=== PATIENT | female | born 1980 | race American Indian/Alaskan Native ===

== ENCOUNTER 2017-01-09 21:59 | Emergency (ER) | payer BC ==
[2017-01-09 22:17] VITALS: O2SAT 100
[2017-01-10 00:18] LABS: RBC URINE 5 /hpf (0-3); URINE BILIRUBIN NEGATIVE (NEGATIVE); URINE BLOOD 3+ (NEGATIVE); URINE COLOR Yellow (YELLOW); URINE GLUCOSE (UA) NORMAL (Normal); URINE KETONE NEGATIVE (NEGATIVE); URINE LEUKOCYTE ESTERASE NEG Leu/uL (Negative); URINE PROTEIN NEGATIVE (NEGATIVE); URINE UROBILINOGEN NORMAL mg/dL (0.2-1.0); WBC URINE 2 /hpf (0-5)
[2017-01-10] MEDS ORDERED: Sodium Chloride 0.9% 1,000 ML IV ONE (01:04)
[2017-01-10 01:33] LABS: BASO # 0.1 K/uL (0.0-0.2); BASO % 0.9 % (0.0-2.0); EOS # 0.2 K/uL (0.0-0.7); EOS % 2.8 % (0.0-4.0); HEMATOCRIT 37.2 % (34.0-47.0); LYMPH # 3.2 K/uL (1.0-4.3); LYMPH % 47.3 % (20.0-40.0); MEAN CELL VOLUME 80.5 fL (81.0-99.0); MEAN CORPUSCULAR HGB CONC 32.4 g/dL (33.0-37.0); MEAN PLATELET VOLUME 8.8 fL (7.2-11.7); MONO # 0.3 K/uL (0.0-0.8); NRBC % 0.1 % (0.0-2.0); RED CELL DISTRIBUTION WIDTH 14.2 % (11.5-14.5); WHITE BLOOD COUNT 6.9 K/uL (4.8-10.8)
[2017-01-10] MEDS ORDERED: Sodium Chloride 0.9% 1,000 ML ONE (01:40)
[2017-01-10 02:00] LABS: CHLORIDE 101 mmol/L (98-107)
[2017-01-10 02:01] LABS: POTASSIUM 3.8 mmol/L (3.6-5.2); SODIUM 136 mmol/L (132-148)
[2017-01-10 02:03] LABS: ALKALINE PHOSPHATASE 60 U/L (38-126); ALT/SGPT 34 U/L (9-52); AST/SGOT 21 U/L (14-36); BILIRUBIN,TOTAL 0.5 mg/dL (0.2-1.3); BLOOD UREA NITROGEN 11 mg/dL (7-17); CARBON DIOXIDE 25 mmol/L (22-30); GFR AFRICAN-AMERICAN > 60; GLUCOSE,RANDOM 90 mg/dL (65-105); TOTAL PROTEIN 6.9 g/dL (6.3-8.3)
[2017-01-10] MEDS ORDERED: Iodixanol 320 mg/ml 150 ml Bottle IV ONE (02:58)
[2017-01-10 03:26] VITALS: BP 131/83; PULSE 79; RESP 16; TEMP 97.7
--- NOTE | 2017-01-10 03:47 | C.PDOC ---
History Of Present Illness 36 y/o female presents to ED with complaint of abdominal pain that started yesterday. Patient notes that evaluated by OB-OPTICAL ADVISOR a few weeks ago and was told that she has a fibroid "on her bladder". Patient notes she got her menstrual period yesterday and now reports increased pain. Notes taking Excedrin without relief. Denies vaginal discharge or concern for STD, noting she had recent negative STD test. Otherwise, denies fever, chills, nausea, vomiting, diarrhea, urinary symptoms. Time Seen by Provider: 01/10/17 01:00 Chief Complaint (Nursing): Abdominal Pain History Per: Patient History/Exam Limitations: no limitations Onset/Duration Of Symptoms: Days Current Symptoms Are (Timing): Still Present Location Of Pain/Discomfort: RLQ, LLQ, Suprapubic Radiation Of Pain To:: None Quality Of Discomfort: "Pain" Associated Symptoms: denies: Fever, Chills, Nausea, Vomiting, Diarrhea, Back Pain, Urinary Symptoms Recent travel outside of the [place]: No Abnormal Vaginal Bleeding: No Last Menstral Period: yesterday Past Medical History Reviewed: Historical Data, Nursing Documentation, Vital Signs Vital Signs: Last Vital Signs Temp 97.7 F 01/10/17 03:25 Pulse 79 01/10/17 03:25 Resp 16 01/10/17 03:25 BP 131/83 01/10/17 03:25 Pulse Ox 100 01/10/17 06:03 - Medical History PMH: No Chronic Diseases Family History: States: Unknown Family Hx - Social History Hx Tobacco Use: No Hx Alcohol Use: Yes Hx Substance Use: No - Immunization History Hx Tetanus Toxoid Vaccination: No Hx Influenza Vaccination: Yes Hx Pneumococcal Vaccination: No Review Of Systems Except As Marked, All Systems Reviewed And Found Negative. Constitutional: Negative for: Fever, Chills Cardiovascular: Negative for: Chest Pain Respiratory: Negative for: Cough Gastrointestinal: Positive for: Abdominal Pain. Negative for: Nausea, Vomiting , Diarrhea Genitourinary: Negative for: Dysuria, Hematuria, Vaginal Discharge Skin: Negative for: Rash Neurological: Negative for: Headache, Dizziness Physical Exam - Physical Exam Appears: Non-toxic, No Acute Distress, Other (sleeping on initial examination) Skin: Normal Color, Warm, Dry Head: Atraumatic, Normacephalic Eye(s): bilateral: Normal Inspection, EOMI Nose: Normal Oral Mucosa: Moist Chest: Symmetrical Cardiovascular: Rhythm Regular Respiratory: No Rales, No Rhonchi, No Wheezing Gastrointestinal/Abdominal: Soft, Tenderness (suprapubic, bilateral lower quadrants), No Distention, No Guarding, No Rebound Back: Normal Inspection Extremity: Normal ROM, Capillary Refill (< 2 sec. ) Neurological/Psych: Oriented x3, Normal Speech, Normal Cognition ED Course And Treatment - Laboratory Results Result Diagrams: 01/10/17 01:30 01/10/17 01:30 O2 Sat by Pulse Oximetry: 100 (RA) Pulse Ox Interpretation: Normal - CT Scan/US CT Abdomen/Pelvis Other Rad Studies (CT/US): Read By Radiologist, Radiology Report Reviewed CT/US Interpretation: EXAM: CT Abdomen and Pelvis With Intravenous Contrast. CLINICAL HISTORY: 36 years old, female; Pain; Abdominal pain; Periumbilical. TECHNIQUE: Axial computed tomography images of the abdomen and pelvis with intravenous contrast. This CT. exam was performed using one or more of the following dose reduction techniques: automated. exposure control, adjustment of the mA and/or kV according to patient size, and/or use of iterative. reconstruction technique. Coronal and sagittal reformatted images were created and reviewed. CONTRAST: 100 mL of [id number] administered intravenously. COMPARISON: No relevant prior studies available. FINDINGS: Lower thorax: RIGHT lower lobe calcified granuloma. ABDOMEN: Liver: Unremarkable. No mass. Gallbladder and bile ducts: No calcified stones. No ductal dilation. Pancreas: No ductal dilation. No mass. Spleen: No splenomegaly. Adrenals: No mass. Kidneys and ureters: No mass. No hydronephrosis. Stomach and bowel: No definite mural thickening. No obstruction. Appendix: Normal caliber. No inflammation. PELVIS: Bladder: Unremarkable. Reproductive: Lobulated uterus with several masses. ABDOMEN and PELVIS: Intraperitoneal space: No significant fluid collection. No free air. Bones/joints: No acute fracture. Soft tissues: Unremarkable. Vasculature: Unremarkable. No aneurysm. Lymph nodes: Few subcentimeter short axis mesenteric, retroperitoneal, iliac lymph nodes,. nonspecific. IMPRESSION: 1. Probable fibroid uterus. 2. Incidental/ non-acute findings are described above. Progress Note: Treated with Toradol and IVFs. CT abdomen/pelvis and labs ordered. On reassessment, patient is resting comfortably, and is in no acute distress. Tolerating PO. Patient instructed to follow up with PMD within 2-5 days. Disposition - Disposition Disposition: HOME/ ROUTINE Disposition Time: 03:46 Condition: STABLE Additional Instructions: Follow up with your primary medical doctor or clinic in 2-5 days for further evaluation. Take medications as prescribed. Return to the emergency department at any time if symptoms persist or worsen. 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 - Scribe Statement The provider has reviewed the documentation as recorded by the Manuelitoibrabia doe All medical record entries made by the [place] were at my direction and personally dictated by me. I have reviewed the chart and agree that the record accurately reflects my personal performance of the history, physical exam, medical decision making, and the department course for this patient. I have also personally directed, reviewed, and agree with the discharge instructions and disposition.
--- NOTE | 2017-01-10 10:13 | CT ---
PROCEDURE: CT Abdomen and Pelvis with intravenous contrast HISTORY: Abdominal pain COMPARISON: None. TECHNIQUE: Multiple contiguous axial images were performed through the abdomen and pelvis with intravenous contrast. Subsequently, sagittal and coronal reformatted images were obtained. Radiation dose: Total exam DLP = 732 mGy-cm. This CT exam was performed using one or more of the following dose reduction techniques: Automated exposure control, adjustment of the mA and/or kV according to patient size, and/or use of iterative reconstruction technique. FINDINGS: LOWER THORAX: Few punctate subpleural nodules in the right lung including the middle and lower lobes. Punctate right lower lobe calcified granuloma. Punctate nodule at the level of the lingula. LIVER: Unremarkable. No gross lesion or ductal dilatation. GALLBLADDER AND BILE DUCTS: Unremarkable. PANCREAS: Unremarkable. No gross lesion or ductal dilatation. SPLEEN: Unremarkable. ADRENALS: Unremarkable. No mass. KIDNEYS AND URETERS: Unremarkable. No hydronephrosis. No solid mass. VASCULATURE: Unremarkable. No aortic aneurysm. BOWEL: Unremarkable. No obstruction. No gross mural thickening. APPENDIX: Unremarkable. Normal appendix. PERITONEUM: Unremarkable. No free fluid. No free air. LYMPH NODES: Few subcentimeter short axis mesenteric, retroperitoneal, and iliac lymph nodes, nonspecific. BLADDER: Unremarkable. REPRODUCTIVE: Lobulated uterus with several masses. BONES: Small posterior disc osteophyte complexes at the L5-S1 level. OTHER FINDINGS: None. IMPRESSION: Probable fibroid uterus. Additional findings as above. These findings were preliminarily reported at 3:43 a.m. on 01/10/[address] Zana Bailey from [email or web address].
== END 2017-01-10 03:56 | disposition home or self-care (01) ==
LOC: C.ER 21:59
DX: D25.9 Leiomyoma of uterus, unspecified (principal)
CPT/HCPCS: 74177; 80053; 81001; 83690; 84703; 85025; 96361; 96374; 99284; J1885; J7040; Q9965

== ENCOUNTER 2017-06-16 12:31 | Emergency (ER) | payer BC ==
[2017-06-16 13:10] LABS: RBC URINE 2 /hpf (0-3); URINE BILIRUBIN NEGATIVE (NEGATIVE); URINE BLOOD NEGATIVE (NEGATIVE); URINE COLOR Yellow (YELLOW); URINE GLUCOSE (UA) NORMAL (Normal); URINE KETONE NEGATIVE (NEGATIVE); URINE LEUKOCYTE ESTERASE NEG Leu/uL (Negative); URINE PROTEIN NEGATIVE (NEGATIVE); URINE UROBILINOGEN NORMAL mg/dL (0.2-1.0); WBC URINE < 1 /hpf (0-5)
--- NOTE | 2017-06-16 13:31 | C.PDOC ---
History Of Present Illness 36 YO female w/PMHx of uterine fibroids come in for evaluation of suprapubic cramping pain developed for past few days. Pt admits, similar sx in past and c/ w " my fibroid pain". Otherwise, pt denies fever, chills, headache, dizziness, neck pain, CP, SOB, dyspnea, diaphoresis, abd. pain, N/V/D, UTI sx, hematuria, vaginal irritation or discharges. LNMP 05/06/17. Ambulate to ED for evaluation, not in any apparent distress. FYI: pt was seen here on 12/2016 due to same complaints when CT abd/plevis performed with no acute findings. Time Seen by Provider: 06/16/17 12:53 Chief Complaint (Nursing): Abdominal Pain History Per: Patient Onset/Duration Of Symptoms: Intermittent Episodes Past Medical History Reviewed: Historical Data, Nursing Documentation, Vital Signs Vital Signs: Last Vital Signs Temp 98.6 F 06/16/17 12:35 Pulse 100 H 06/16/17 12:35 Resp 20 06/16/17 12:35 BP 157/107 H 06/16/17 12:35 Pulse Ox 100 06/16/17 14:58 - Medical History PMH: Denies: Chronic Kidney Disease Surgical History: No Surg Hx Family History: States: No Known Family Hx - Social History Hx Tobacco Use: No Hx Alcohol Use: Yes Hx Substance Use: No - Immunization History Hx Tetanus Toxoid Vaccination: No Hx Influenza Vaccination: Yes Hx Pneumococcal Vaccination: No Review Of Systems Except As Marked, All Systems Reviewed And Found Negative. Constitutional: Negative for: Fever, Chills ENT: Negative for: Throat Pain Cardiovascular: Negative for: Chest Pain, Palpitations Respiratory: Negative for: Cough, Shortness of Breath, Wheezing Gastrointestinal: Negative for: Nausea, Vomiting, Abdominal Pain, Diarrhea, Melena, Hematochezia, Hematemesis Musculoskeletal: Negative for: Neck Pain, Back Pain Skin: Negative for: Rash Neurological: Negative for: Weakness, Numbness, Altered Mental Status, Dizziness Physical Exam - Physical Exam Appears: Well, Non-toxic, No Acute Distress Skin: Normal Color, Warm, Dry, No Rash Eye(s): bilateral: PERRL Nose: No Discharge Oral Mucosa: Moist, No Drooling Tongue: Normal Appearing Lips: Normal Appearing Throat: No Erythema Neck: Trachea Midline, Supple Cardiovascular: Rhythm Regular, No JVD Respiratory: No Decreased Breath Sounds, No Accessory Muscle Use, No Stridor, No Wheezing Gastrointestinal/Abdominal: Soft, Tenderness (mild suprapubic), No Distention, No Guarding, No Rebound Back: No CVA Tenderness Extremity: Normal ROM Neurological/Psych: Oriented x3, Normal Speech ED Course And Treatment - Laboratory Results Urine POC: Negative O2 Sat by Pulse Oximetry: 100 Pulse Ox Interpretation: Normal - CT Scan/US Transvaginal US Other Rad Studies (CT/US): Radiology Report Reviewed CT/US Interpretation: Accession No. : [id number]. Patient Name / ID : [id number] [id number] / [id number]. Exam Date : 06/16/2017 14:11:57 ( Approved ). Study Comment : Sex / Age : F / 36Y. Creator : Steve Andino MD. Dictator : Steve Andino MD. Coding Educator : Disability Insurance Hearing Officer : Steve Andino MD. Approver2 : Report Date : 06/16/2017 14:39:10. My Comment : . HISTORY: PELVIC PAIN. COMPARISON: Comparison is made to the previous CT dated 01/10/2017. TECHNIQUE: Transabdominal and endovaginal ultrasound examination of the pelvis. FINDINGS: UTERUS: Measures 11.4 x 5.8 x 6.55 cm. Normal in size and appearance. There are 3 fibroids seen in the uterus. The largest fibroid seen at the uterine fundus measures 5.4 x 4.7 x 5.14 centimeter. There is also 3.6 centimeter anterior wall and 2.6 centimeter posterior wall fibroids. ENDOMETRIUM: Measures 9.8 mm in diameter. Unremarkable. CERVIX: No cervical abnormality identified. RIGHT OVARY: Measures 2.5 x 1.6 x 2.2 cm. No solid mass. Normal flow. LEFT OVARY: Measures 4 x 1.6 x 3.2 cm. No solid mass. Normal flow. FREE FLUID: No significant free fluid noted. OTHER FINDINGS: None. IMPRESSION: Heterogeneous mildly to moderately enlarged uterus contains 3 fibroids. The largest fibroid is seen at the uterine fundus measures 5.4 centimeter. No evidence of acute pathology in the ovaries. Progress Note: On re-eavluation, pt is afebrile, hemdoynamicaly stable. Non- toxic. neck: Supple. Lungs: CTA B/L, BS equal B/L. Abd: benign, (-) guarding , (-) rebound. back: (-) CVA tenderness. US results review (+) uterine fibroids, no other new acute changes. Pt advised and ref. to f/u with [facility] SECURITY CONSULTANT in2 - 3 days for re-eval. return to ED if any worsening or new changes. Disposition Counseled Patient/Family Regarding: Studies Performed, Diagnosis, Need For Followup, Rx Given - Disposition [facility] Disposition: HOME/ ROUTINE Disposition Time: 14:30 Condition: STABLE Additional Instructions: FOLLOW UP WITH [facility] SECURITY CONSULTANT IN 2-3 DAYS FOR RE-EVALUATION. TAKE PAIN MEDICATION PRESCRIBED NEED RETURN TO ED IF ANY WORSENING OR NEW CHANGES. Prescriptions: traMADol [Ultram] 50 mg PO TID #7 tab Instructions: Uterine Fibroids (ED) Forms: WISHI (Portuguese) - Clinical Impression Clinical Impression: Uterine fibroid
--- NOTE | 2017-06-16 14:40 | US ---
HISTORY: PELVIC PAIN COMPARISON: Comparison is made to the previous CT dated 01/10/2017 TECHNIQUE: Transabdominal and endovaginal ultrasound examination of the pelvis. FINDINGS: UTERUS: Measures 11.4 x 5.8 x 6.55 cm. Normal in size and appearance. There are 3 fibroids seen in the uterus. The largest fibroid seen at the uterine fundus measures 5.4 x 4.7 x 5.14 centimeter. There is also 3.6 centimeter anterior wall and 2.6 centimeter posterior wall fibroids. ENDOMETRIUM: Measures 9.8 mm in diameter. Unremarkable. CERVIX: No cervical abnormality identified. RIGHT OVARY: Measures 2.5 x 1.6 x 2.2 cm. No solid mass. Normal flow. LEFT OVARY: Measures 4 x 1.6 x 3.2 cm. No solid mass. Normal flow. FREE FLUID: No significant free fluid noted. OTHER FINDINGS: None. IMPRESSION: Heterogeneous mildly to moderately enlarged uterus contains 3 fibroids. The largest fibroid is seen at the uterine fundus measures 5.4 centimeter. No evidence of acute pathology in the ovaries.
[2017-06-16 15:10] VITALS: BP 153/90; PULSE 94; RESP 18; TEMP 98.4; O2SAT 98
== END 2017-06-16 15:11 | disposition home or self-care (01) ==
LOC: C.ER 12:31
DX: D25.9 Leiomyoma of uterus, unspecified (principal)